=== PATIENT | female | born 1955 | race Caucasian/White ===

== ENCOUNTER 2017-06-22 05:44 | Inpatient (IN) | payer BC ==
[2017-06-22] MEDS ORDERED: MIDAZOLAM 1 MG/ML 2 ML INJ (07:49)
[2017-06-22] MEDS ORDERED: PHENYLephrine (100 MCG/ML) 5ML SYG (08:03)
[2017-06-22] MEDS ORDERED: hydrALAzine 20 MG INJ (10:03)
[2017-06-22] MEDS ORDERED: BUPIVACAINE 0.5% (SDV) 30 ML INJ (11:00)
[2017-06-22] MEDS: BUPIVACAINE 0.5%/EPI (SDV) 30 ML INJ INJ (11:39)
[2017-06-22] MEDS ORDERED: ONDANSETRON 4 MG INJ (11:40)
[2017-06-22] MEDS ORDERED: NEOSTIGMINE 3 MG/3 ML SYRINGE (11:40)
[2017-06-22] MEDS ORDERED: ETOMIDATE 20 MG INJ (11:40)
[2017-06-22] MEDS ORDERED: CEFAZOLIN 1 GM INJ (11:40)
[2017-06-22] MEDS ORDERED: ROCURONIUM 50 MG INJ (11:40)
[2017-06-22] MEDS ORDERED: GLYCOPYRROLATE 0.4 MG INJ (11:40)
[2017-06-22] MEDS ORDERED: LIDOCAINE 2% (SDV) 5 ML INJ (11:40)
[2017-06-22] MEDS ORDERED: MEPERIDINE 25 MG INJ IV (12:00)
[2017-06-22] MEDS ORDERED: ONDANSETRON 4 MG INJ IV (12:00)
[2017-06-22] MEDS ORDERED: DIPHENHYDRAMINE 50 MG INJ IV (12:00)
[2017-06-22] MEDS ORDERED: METOCLOPRAMIDE 10 MG INJ IV (12:00)
[2017-06-22] MEDS ORDERED: FENTAnyl 50 MCG/ML VIAL IV (12:00)
[2017-06-22] MEDS ORDERED: HYDROmorphONE (0.2 MG/ML) 10ML SYG IV (12:00)
[2017-06-22] MEDS: CEFAZOLIN 2 GM/50 ML (PMX) 50 ML IVPB ×2 (12:23→21:39)
[2017-06-22] MEDS: HYDROmorphONE (0.2 MG/ML) 10ML SYG IV ×2 (12:24→13:40)
[2017-06-22] MEDS: ONDANSETRON 4 MG INJ IV (12:24)
[2017-06-22] MEDS ORDERED: MAGNESIUM HYDROXIDE 30ML CUP PO (12:30)
[2017-06-22 13:01] LABS: ADD MAN DIFF? NO
[2017-06-22 13:02] LABS: BASOPHILS % 0.3 % (0.0-2.0); EOSINOPHILS % 0.1 % (0.0-7.0); HEMATOCRIT 33.8 % (37.0-47.0); HEMOGLOBIN 11.9 g/dl (12.0-16.0); LYMPHOCYTES # 1.9 10^3/ul (0.8-2.9); LYMPHOCYTES % 14.1 % (15.0-51.0); MEAN CORPUSCULAR HEMOGLOBIN 32.2 pg (29.0-33.0); MEAN CORPUSCULAR HGB CONC 35.2 g/dl (32.0-37.0); MEAN CORPUSCULAR VOLUME 91.6 fl (82.0-101.0); MEAN PLATELET VOLUME 9.1 fl (7.4-10.4); MONOCYTE # 0.9 10^3/ul (0.3-0.9); MONOCYTES % 6.5 % (0.0-11.0); NEUTROPHIL # 10.7 10^3/ul (1.6-7.5); NEUTROPHILS % 78.6 % (39.0-77.0); PLATELET COUNT 152 10^3/UL (140-415); RED BLOOD COUNT 3.69 10^6/ul (4.20-5.40); RED CELL DISTRIBUTION WIDTH 12.4 % (11.5-14.5)
[2017-06-22 13:02] LABS: WHITE BLOOD COUNT 13.6 10^3/ul (4.8-10.8)
[2017-06-22 13:10] LABS: HOLD TRANSMISSIONS 1
[2017-06-22 13:51] LABS: ANION GAP 17 (8-16); CARBON DIOXIDE 23 mmol/L (21-31); CHLORIDE 106 mmol/L (97-110); GLUCOSE 167 mg/dl (70-220)
[2017-06-22 13:52] LABS: BLOOD UREA NITROGEN 10 mg/dl (7-20); CALCIUM 8.4 mg/dl (8.4-10.2); CREATININE 0.62 mg/dl (0.44-1.00); SODIUM 143 mmol/L (135-144)
[2017-06-22] MEDS: LABETALOL HCL 20MG INJ IV (14:57)
[2017-06-22] MEDS: D5-NS + KCL 20 MEQ 1,000 ML IV ×2 (15:46→21:37)
[2017-06-23] MEDS: HYDROmorphONE 0.5 MG/0.5 ML SYG IV ×2 (01:22→14:23)
[2017-06-23] MEDS: ONDANSETRON 4 MG INJ IV (01:22)
[2017-06-23] MEDS: D5-NS + KCL 20 MEQ 1,000 ML IV ×3 (01:23→23:49)
[2017-06-23] MEDS: CEFAZOLIN 2 GM/50 ML (PMX) 50 ML IVPB (04:10)
[2017-06-23] MEDS: PANTOPRAZOLE (EC) 40 MG TAB PO (05:30)
[2017-06-23] MEDS: NACL 0.9% 3 ML SYG IV (05:31)
[2017-06-23 06:17] LABS: ADD MAN DIFF? NO
[2017-06-23 06:24] LABS: BASOPHILS % 0.2 % (0.0-2.0); EOSINOPHILS % 0.2 % (0.0-7.0); HEMATOCRIT 30.3 % (37.0-47.0); HEMOGLOBIN 10.5 g/dl (12.0-16.0); LYMPHOCYTES % 15.3 % (15.0-51.0); MEAN CORPUSCULAR HEMOGLOBIN 32.2 pg (29.0-33.0); MEAN CORPUSCULAR HGB CONC 34.7 g/dl (32.0-37.0); MEAN CORPUSCULAR VOLUME 92.9 fl (82.0-101.0); MEAN PLATELET VOLUME 9.9 fl (7.4-10.4); MONOCYTE # 0.7 10^3/ul (0.3-0.9); MONOCYTES % 10.3 % (0.0-11.0); NEUTROPHIL # 4.9 10^3/ul (1.6-7.5); NEUTROPHILS % 73.7 % (39.0-77.0); PLATELET COUNT 146 10^3/UL (140-415); RED BLOOD COUNT 3.26 10^6/ul (4.20-5.40); RED CELL DISTRIBUTION WIDTH 12.8 % (11.5-14.5)
[2017-06-23 06:24] LABS: WHITE BLOOD COUNT 6.6 10^3/ul (4.8-10.8)
[2017-06-23 06:58] LABS: ANION GAP 11 (8-16); BLOOD UREA NITROGEN 7 mg/dl (7-20); CALCIUM 8.3 mg/dl (8.4-10.2); CARBON DIOXIDE 28 mmol/L (21-31); CHLORIDE 109 mmol/L (97-110); CREATININE 0.91 mg/dl (0.44-1.00); GLUCOSE 123 mg/dl (70-220); POTASSIUM 3.8 mmol/L (3.5-5.1); SODIUM 144 mmol/L (135-144)
[2017-06-24] MEDS: D5-NS + KCL 20 MEQ 1,000 ML IV ×3 (02:02→23:08)
[2017-06-24] MEDS: HYDROmorphONE 0.5 MG/0.5 ML SYG IV ×2 (05:29→22:03)
[2017-06-24] MEDS: PANTOPRAZOLE (EC) 40 MG TAB PO (05:29)
[2017-06-24] MEDS: HYDROCODONE/APAP (10/325) TAB PO (16:34)
[2017-06-25] MEDS: PANTOPRAZOLE (EC) 40 MG TAB PO (05:27)
[2017-06-25] MEDS: ACETAMINOPHEN 325 MG TAB PO (05:48)
[2017-06-25] MEDS: HYDROmorphONE 0.5 MG/0.5 ML SYG IV (12:04)
[2017-06-25] MEDS: HYDROCODONE/APAP (5/325) TAB PO (20:10)
[2017-06-25] MEDS: DOCUSATE SODIUM 100 MG CAP PO (20:10)
[2017-06-26] MEDS: PANTOPRAZOLE (EC) 40 MG TAB PO (05:46)
[2017-06-26] MEDS ORDERED: hydrALAzine 20 MG INJ IV (09:00)
== END 2017-06-26 18:30 | disposition home health service (06) | DRG 658 ==
LOC: REC 05:44 → MS2 15:20
PROC: 0TT04ZZ Resection of Right Kidney, Percutaneous Endoscopic Approach (ICD-10-PCS; principal; 2017-06-22 07:49)
PROC: 07BD4ZX Excision of Aortic Lymphatic, Percutaneous Endoscopic Approach, Diagnostic (ICD-10-PCS; 2017-06-22 07:49)
PROC: 0TN64ZZ Release Right Ureter, Percutaneous Endoscopic Approach (ICD-10-PCS; 2017-06-22 07:49)
PROC: 0KBF3ZX Excision of Right Trunk Muscle, Percutaneous Approach, Diagnostic (ICD-10-PCS; 2017-06-22 07:49)
DX: C64.1 Malignant neoplasm of right kidney, except renal pelvis (principal); R73.03 Prediabetes; R31.0 Gross hematuria; Z87.891 Personal history of nicotine dependence
CPT/HCPCS: 80048; 85025; 86850; 86900; 86901; 86920; 87086; 88307; 97161